=== PATIENT | female | born 1990 | race Two or more races ===

== ENCOUNTER 2016-12-16 11:52 | Emergency (ER) | payer SELFPAY ==
[~2016-12-16] VITALS: Ht 154.9 cm; Wt 64.9 kg
--- NOTE | 2016-12-16 12:57 | PHYS DOC ---
Past Medical History Past Medical History: Asthma Past Surgical History: Alcohol Use: None Drug Use: None Adult General Chief Complaint Chief Complaint: SORE THROAT HPI HPI Patient is a 26 year old female presents emergency department stating that she is 16 weeks . She is complaining of a sore throat that started yesterday. She denies any fever, chills or any nausea vomiting. She states that when she woke up this morning that was worse when she was having increased difficulty with swallowing. Patient states she has many old to maintain her own saliva and is able to swallow fluids. Patient has not taken anything for the pain and discomfort. Patient denies any cough or congestion. Review of Systems Review of Systems Constitutional: Denies fever or chills [] Eyes: Denies change in visual acuity, redness, or eye pain [] HENT: Denies nasal congestion. C/o sore throat Respiratory: Denies cough or shortness of breath [] Cardiovascular: No additional information not addressed in HPI [] GI: Denies abdominal pain, nausea, vomiting, bloody stools or diarrhea [] : Denies dysuria or hematuria [] Musculoskeletal: Denies back pain or joint pain [] Integument: Denies rash or skin lesions [] Neurologic: Denies headache, focal weakness or sensory changes [] Allergies Allergies Allergies Coded Allergies Type Severity Reaction Last Updated Verified No Known Drug Allergies 09/14/14 No Physical Exam Physical Exam Constitutional: Well developed, well nourished, no acute distress, non-toxic appearance. [] HENT: Normocephalic, atraumatic, bilateral external ears normal, oropharynx moist, no oral exudates, nose normal. Bilateral tympanic membranes appear to be normal. Throat with erythematous noted with no exudate. No uvula deviation noted. Eyes: PERRLA, EOMI, conjunctiva normal, no discharge. [] Neck: Normal range of motion, no tenderness, supple, no stridor. [] Cardiovascular:Heart rate regular rhythm, no murmur [] Lungs & Thorax: Bilateral breath sounds clear to auscultation [] Skin: Warm, dry, no erythema, no rash. [] Back: No tenderness Extremities: No tenderness, no cyanosis, no clubbing, ROM intact, no edema. [] Neurologic: Alert and oriented X 3, normal motor function, normal sensory function, no focal deficits noted. [] Psychologic: Affect normal, judgement normal, mood normal. [] Current Patient Data Vital Signs Vital Signs Date Time Temp Pulse Resp B/P Pulse Ox O2 Delivery O2 Flow Rate FiO2 12/16/16 13:08 98.1 64 20 100 Room Air 98.1 EKG EKG [] Radiology/Procedures Radiology/Procedures [] Course & Med Decision Making Course & Med Decision Making Pertinent Labs and Imaging studies reviewed. (See chart for details) Rapid strep was negative. Patient will be encouraged to drink plenty of fluids. Throat culture is pending. Also recommended Benadryl to help with the nasal secretions in the back of the throat. Also recommended patient to follow up with primary care physician in the next week if she is not feeling better. Since symptoms to return back to emergency department as been provided. Patient agrees with discharge instructions treatment regimens and follow-up recommendations. [] Dragon Disclaimer Dragon Disclaimer This electronic medical record was generated, in whole or in part, using a voice recognition dictation system. Departure Departure Impression: Primary Impression: Pharyngitis Disposition: 01 HOME, SELF-CARE Condition: STABLE Referrals: NO PCP (PCP) Patient Instructions: Viral and Bacterial Pharyngitis, [id number] Additional Instructions: Activity as tolerated. And off for pain and discomfort. You may also try Benadryl to help with the secretions down the back of the throat. Drink plenty of fluids. Follow-up through primary care physician in next week. Return back to emergency prior signs symptoms become worse. CARMEN HARRIS NP Dec 16, 2016 12:57
[2016-12-16 13:08] VITALS: BP 106/58
[2016-12-16 14:57] LABS: NEGATIVE OBC STREP NEG; POSITIVE OBC STREP POS
== END 2016-12-16 13:36 | disposition home or self-care (01) ==
LOC: ER 11:52
DX: O99.512 Diseases of the respiratory system complicating pregnancy, second trimester (principal); J02.9 Acute pharyngitis, unspecified; J45.909 Unspecified asthma, uncomplicated; Z3A.16 16 weeks gestation of pregnancy
CPT/HCPCS: 87070; 87880; 99283

== ENCOUNTER 2017-09-03 00:49 | Emergency (ER) | payer SELFPAY ==
[~2017-09-03] VITALS: Ht 154.9 cm; Wt 72.6 kg
[2017-09-03 01:24] VITALS: BP 115/56
[2017-09-03 01:29] LABS: BILIRUBIN,URINE NEGATIVE (NEG); GLUCOSE,URINE NEGATIVE (NEG); NITRITE,URINE NEGATIVE (NEG); PH,URINE 6.5; PROTEIN,URINE NEGATIVE (NEG-TRACE); UROBILINOGEN,URINE 0.2 mg/dL (0.2 mg/dL)
[2017-09-03 01:36] LABS: BACTERIA,URINE MODERATE /HPF (0-FEW); SQUAMOUS EPITHELIAL CELL,UR MOD /LPF; WBC,URINE TNTC /HPF (0-4)
[2017-09-03 01:41] LABS: NEG OBC UR NEG; POS OBC UR POS
[2017-09-03] MEDS ORDERED: NITR100C62 PO (01:59)
--- NOTE | 2017-09-03 01:59 | PHYS DOC ---
Past Medical History Past Medical History: Asthma Past Surgical History: Alcohol Use: None Drug Use: None Adult General Chief Complaint Chief Complaint: PAIN ON URINATION HPI HPI Patient is a 26 year old or sensory complaints of discomfort with urination, this is similar to previous UTIs. She denies any fevers, chills, rashes, vomiting, diarrhea, abdominal pain or back pain. Patient also denies vaginal discharge or vaginal bleeding. Review of Systems Review of Systems Constitutional: Denies fever or chills [] HENT: Denies nasal congestion or sore throat [] Respiratory: Denies cough or shortness of breath [] Cardiovascular: No chest pain GI: Denies abdominal pain, nausea, vomiting, : Denies hematuria, vaginal discharge or vaginal bleeding . yes to dysuria. Musculoskeletal: Denies back pain or joint pain [] Integument: Denies rash or skin lesions [] Neurologic: Denies headache, focal weakness or sensory changes [] Endocrine: Denies polyuria or polydipsia [] Allergies Allergies Allergies Coded Allergies Type Severity Reaction Last Updated Verified No Known Drug Allergies 09/14/14 No Physical Exam Physical Exam Constitutional: Well developed, well nourished, no acute distress, non-toxic appearance. [] HENT: Normocephalic, atraumatic, Eyes: EOMI, conjunctiva normal, no discharge. [] Neck: Normal range of motion, no tenderness, supple, no stridor. [] Cardiovascular:Heart rate regular rhythm, no murmur [] Lungs & Thorax: Bilateral breath sounds clear to auscultation [] Abdomen: Bowel sounds normal, soft, no tenderness, no masses, no pulsatile masses. [] Skin: Warm, dry, no erythema, no rash. [] Back: No tenderness, no CVA tenderness. [] Extremities: No tenderness, ROM intact, no edema. [] Neurologic: Alert and oriented X 3, normal motor function, no focal deficits noted. [] Psychologic: Affect normal, judgement normal, mood normal. [] Current Patient Data Vital Signs Vital Signs Date Time Temp Pulse Resp B/P (MAP) Pulse Ox O2 Delivery O2 Flow Rate FiO2 09/03/17 01:24 98.2 78 18 99 Room Air 98.2 Lab Values Laboratory Tests Test 09/03/17 01:20 09/03/17 01:25 Urine Test Negative (NEG) Urine Collection Type Unknown Urine Color Yellow Urine Clarity Cloudy Urine pH 6.5 Urine Specific [place] >=1.030 Urine Protein Negative mg/dL (NEG-TRACE) Urine Glucose (UA) Negative mg/dL (NEG) Urine Ketones (Stick) Negative mg/dL (NEG) Urine Blood Negative (NEG) Urine Nitrite Negative (NEG) Urine Bilirubin Negative (NEG) Urine Urobilinogen Dipstick 0.2 mg/dL (0.2 mg/dL) Urine Leukocyte Esterase Large (NEG) Urine RBC 1-2 /HPF (0-2) Urine WBC Tntc /HPF (0-4) Urine Squamous Epithelial Cells Mod /LPF Urine Bacteria Moderate /HPF (0-FEW) Urine Mucus Mod /LPF EKG EKG [] Radiology/Procedures Radiology/Procedures [] Course & Med Decision Making Course & Med Decision Making Pertinent Labs and Imaging studies reviewed. (See chart for details) [] Dragon Disclaimer Dragon Disclaimer This electronic medical record was generated, in whole or in part, using a voice recognition dictation system. Departure Departure Impression: Primary Impression: UTI (urinary tract infection) Disposition: HOME, SELF-CARE Condition: STABLE Referrals: UNKNOWN PCP NAME (PCP) Patient Instructions: Urinary Tract Infection, [id number] Additional Instructions: Please follow-up with your doctor for recheck and reevaluation within 1 week. Scripts Nitrofurantoin Monohyd/M-Cryst (MACROBID 100 MG CAPSULE) 100 Mg Capsule 1 CAP PO BID, #10 CAP Prov: Inocencio ENRIQUEZ MD 09/03/17 Inocencio ENRIQUEZ MD Sep 03, 2017 01:59
== END 2017-09-03 02:13 | disposition home or self-care (01) ==
LOC: ER 00:49
DX: N39.0 Urinary tract infection, site not specified (principal); J45.909 Unspecified asthma, uncomplicated
CPT/HCPCS: 81001; 81025; 87086; 99284

== ENCOUNTER 2017-11-16 17:19 | Emergency (ER) | payer SELFPAY ==
[~2017-11-16] VITALS: Ht 154.9 cm; Wt 72.6 kg
[~2017-11-16 17:19] MED LIST: NITR100C62 PO
[2017-11-16 17:53] VITALS: BP 122/69
--- NOTE | 2017-11-17 07:35 | RAD ---
Hand x-rays Indication: Injury to the forearm and fourth finger. Technique: 3 views of the left hand Comparison: None Findings: Subtle obliquely oriented lucency is seen through the distal aspect of the proximal phalanx of the fifth finger. No soft tissue abnormality. No radiopaque foreign body. No evidence of arthritic process. Impression: Subtle linear lucency through the distal aspect of the proximal phalanx of the fifth finger may represent a hairline fracture or vascular/nutrient channel. Clinically correlate with focal tenderness.
--- NOTE | 2017-11-17 15:40 | PHYS DOC ---
Past Medical History Past Medical History: Asthma Past Surgical History: Alcohol Use: None Drug Use: None Adult General Chief Complaint Chief Complaint: THUMB HPI HPI Patient is a 27 year old female who presents with pain to the left thumb and ring finger following an injury that occurred this evening. The patient was carrying a top was approximately 50 pounds from chicken when the tub and twisted pulling at her thumb and making 2 small abrasions on her ring finger. She presented immediately to the ED following the injury. Review of Systems Review of Systems Constitutional: Denies fever or chills [] Respiratory: Denies cough or shortness of breath [] Cardiovascular: No additional information not addressed in HPI [] Musculoskeletal: See history of present illness Integument: The history of present illness Neurologic: Denies headache, focal weakness or sensory changes [] All other systems were reviewed and found to be within normal limits, except as documented in this note. Allergies Allergies Allergies Coded Allergies Type Severity Reaction Last Updated Verified No Known Drug Allergies 09/14/14 No Physical Exam Physical Exam Constitutional: Well developed, well nourished, no acute distress, non-toxic appearance. [] Cardiovascular:Heart rate regular rhythm, no murmur [] Lungs & Thorax: Bilateral breath sounds clear to auscultation [] Skin: Patient has two 0.5 cm abrasions to the dorsal aspect of her ring finger Extremities: Tenderness to thumb and first metacarpal with palpation, no gross deformity noted, no cyanosis, no clubbing, ROM decreased due to pain, mild edema Neurologic: Alert and oriented X 3, normal motor function, normal sensory function, no focal deficits noted. [] Psychologic: Affect normal, judgement normal, mood normal. [] Current Patient Data Vital Signs Vital Signs Date Time Temp Pulse Resp B/P (MAP) Pulse Ox O2 Delivery O2 Flow Rate FiO2 11/16/17 17:53 98.8 97 16 100 Room Air 98.8 EKG EKG [] Radiology/Procedures Radiology/Procedures []PATIENT: ANTWAN DIAZ I ACCOUNT: [id number] : 1990 LOCATION: ER AGE: 27 SEX: F EXAM STATUS: DEP ER ORD. PHYSICIAN: TOBY NICHOLSON LABEL MAKER REASON: 50 pound container twisted injuring thumb and 4th finger PROCEDURE: HAND LEFT 3V Hand x-rays Indication: Injury to the forearm and fourth finger. Technique: 3 views of the left hand Comparison: None Findings: Subtle obliquely oriented lucency is seen through the distal aspect of the proximal phalanx of the fifth finger. No soft tissue abnormality. No radiopaque foreign body. No evidence of arthritic process. Impression: Subtle linear lucency through the distal aspect of the proximal phalanx of the fifth finger may represent a hairline fracture or vascular/nutrient channel. Clinically correlate with focal tenderness. DICTATED and SIGNED BY: MADELAINE BROCK DO DATE: 11/17/17 0727 CC: TOBY NICHOLSON APRN; NO PCP; NON,STAFF ~ Course & Med Decision Making Course & Med Decision Making Pertinent Labs and Imaging studies reviewed. (See chart for details) 1. Hand contusion 2. Abrasion Patient was placed in a thumb spica. Extremities warm pink and dry following placement. Pulses and sensation are intact. Patient is to follow-up with orthopedics in one to 2 days for a recheck of this injury. The patient was given a note to excuse for work. She is to return to the ED if worsening. Dragon Disclaimer Dragon Disclaimer This electronic medical record was generated, in whole or in part, using a voice recognition dictation system. Departure Departure Impression: Primary Impression: Sprain Additional Impression: Contusion Disposition: 01 HOME, SELF-CARE Condition: STABLE Referrals: HOANG LINDO MD NO PCP (PCP) Patient Instructions: Contusion, [id number], Sprain, [id number] Additional Instructions: Please make an appointment tomorrow morning for a follow-up with orthopedics. Please return to the ED if worsening. You may use ibuprofen or Tylenol for pain relief. Problem Qualifiers TOBY NICHOLSON APRN Nov 17, 2017 15:40
== END 2017-11-16 19:40 | disposition home or self-care (01) ==
LOC: ER 17:19
DX: S63.602A Unspecified sprain of left thumb, initial encounter (principal); S60.042A Contusion of left ring finger without damage to nail, initial encounter; J45.909 Unspecified asthma, uncomplicated; X58.XXXA Exposure to other specified factors, initial encounter; Y93.89 Activity, other specified; Y92.89 Other specified places as the place of occurrence of the external cause; Y99.8 Other external cause status
CPT/HCPCS: 29125; 73130; 99284-25

== ENCOUNTER 2018-05-25 00:12 | Emergency (ER) | payer SELFPAY ==
[2018-05-25] MEDS: LIDOCAINE 1%/EPI 1:100,000 20 ML VIAL. INJ (00:57)
== END 2018-05-25 01:18 | disposition home or self-care (01) ==
LOC: ER 00:12
DX: S01.01XA Laceration without foreign body of scalp, initial encounter (principal); W01.0XXA Fall on same level from slipping, tripping and stumbling without subsequent striking against object, initial encounter; Y93.89 Activity, other specified; Y92.89 Other specified places as the place of occurrence of the external cause; Y99.8 Other external cause status
CPT/HCPCS: 12001; 99283; J3490

== ENCOUNTER 2018-11-27 16:18 | Emergency (ER) | payer SELFPAY ==
[~2018-11-27] VITALS: Ht 154.9 cm; Wt 72.6 kg
[~2018-11-27 16:18] MED LIST changes: +IBUP-1060 PO
[2018-11-27 17:40] VITALS: BP 108/77
[2018-11-27] MEDS ORDERED: AMOX500C PO (18:06)
--- NOTE | 2018-11-27 18:07 | PHYS DOC ---
Past Medical History Past Medical History: Asthma Past Surgical History: (2) Alcohol Use: None Drug Use: None Adult General Chief Complaint Chief Complaint: SORE THROAT HPI HPI Patient is a 28 year old female who complains of a sore throat for the last 3 days. Patient states she had a recent sinus infection. She currently denies any fever, nausea, vomiting, diarrhea, or cough. States she has had intermittent shortness of breath and that her ears feel full. Patient states she has a history of asthma and takes her albuterol inhaler as needed. Review of Systems Review of Systems Constitutional: Denies fever or chills reports fatigue[] HENT: See HPI Respiratory: See hPI Cardiovascular: No additional information not addressed in HPI [] GI: Denies abdominal pain, nausea, vomiting, or diarrhea [] Integument: Denies rash or skin lesions [] Neurologic: Denies headache, focal weakness or sensory changes [] All other systems were reviewed and found to be within normal limits, except as documented in this note. Allergies Allergies Allergies Coded Allergies Type Severity Reaction Last Updated Verified No Known Drug Allergies 09/14/14 No Physical Exam Physical Exam Constitutional: Well developed, well nourished, no acute distress, non-toxic appearance. [] HENT: Normocephalic, atraumatic, bilateral external ears normal, bilateral TMs normal, erythema or posterior pharynx, oropharynx moist, no oral exudates, nose normal. [] Eyes: conjunctiva normal, no discharge. [] Neck: Normal range of motion, bilateral anterior cervical lymphnode enlargement and tenderness, no stridor. [] Cardiovascular:Heart rate regular rhythm, no murmur [] Lungs & Thorax: Bilateral breath sounds clear to auscultation [] Skin: Warm, dry, no erythema, no rash. [] Neurologic: Alert and oriented X 3, normal motor function, normal sensory function, no focal deficits noted. [] Psychologic: Affect normal, judgement normal, mood normal. [] Current Patient Data Vital Signs Vital Signs Date Time Temp Pulse Resp B/P (MAP) Pulse Ox O2 Delivery O2 Flow Rate FiO2 11/27/18 17:40 99.3 88 20 108/77 (87) 99 Room Air 99.3 Lab Values rapid strep positive EKG EKG [] Radiology/Procedures Radiology/Procedures [] Course & Med Decision Making Course & Med Decision Making Pertinent Labs and Imaging studies reviewed. (See chart for details) [] Dragon Disclaimer Dragon Disclaimer This electronic medical record was generated, in whole or in part, using a voice recognition dictation system. Departure Departure Impression: Primary Impression: Strep pharyngitis Disposition: 01 HOME, SELF-CARE Condition: STABLE Referrals: NO PCP (PCP) Patient Instructions: Strep Throat, [id number] Additional Instructions: Fill prescription and use as directed. Recommend warm salt water gargles as needed for relief of discomfort. Alternate Tylenol and ibuprofen as needed for fever/pain. Discard your toothbrush tomorrow and begin using a new toothbrush. Follow-up with primary care doctor if symptoms persist. Return to the ER if symptoms worsen. Scripts Amoxicillin (AMOXICILLIN) 500 Mg Capsule 1 CAP PO BID for 10 Days, #20 CAP 0 Refills Prov: MAXINE STYLES APRN 11/27/18 MAXINE STYLES APRN Nov 27, 2018 18:07
== END 2018-11-27 18:20 | disposition home or self-care (01) ==
LOC: ER 16:18
DX: J02.0 Streptococcal pharyngitis (principal); B95.0 Streptococcus, group A, as the cause of diseases classified elsewhere; J45.909 Unspecified asthma, uncomplicated; R59.9 Enlarged lymph nodes, unspecified
CPT/HCPCS: 87880; 99283

== ENCOUNTER 2019-02-23 09:00 | Emergency (ER) | payer SELFPAY ==
[~2019-02-23] VITALS: Ht 154.9 cm; Wt 68.0 kg
[~2019-02-23 09:00] MED LIST changes: +AMOX500C PO
[2019-02-23 10:07] VITALS: BP 113/67
[2019-02-23 10:32] LABS: BILIRUBIN,URINE NEGATIVE (NEG); CLARITY,URINE CLEAR; COLOR,URINE YELLOW; NITRITE,URINE NEGATIVE (NEG); PROTEIN,URINE NEGATIVE (NEG-TRACE); UROBILINOGEN,URINE 0.2 mg/dL (0.2 mg/dL)
[2019-02-23 10:48] LABS: SQUAMOUS EPITHELIAL CELL,UR MOD /LPF
[2019-02-23 10:49] LABS: BACTERIA,URINE MODERATE /HPF (0-FEW); RBC,URINE 0 /HPF (0-2)
[2019-02-23] MEDS ORDERED: PHEN-318 PO (11:06)
[2019-02-23] MEDS ORDERED: CIPR500T94 PO (11:06)
--- NOTE | 2019-02-23 11:06 | PHYS DOC ---
Past Medical History Past Medical History: Asthma Past Surgical History: Alcohol Use: Rarely Drug Use: None Adult General Chief Complaint Chief Complaint: PAIN ON URINATION HPI HPI 28-year-old otherwise healthy female presents with a 2 day history of burning with urination. She denies any gross hematuria. She denies any back or flank pain. She's had no nausea or vomiting. Any fever.[] Review of Systems Review of Systems Constitutional: Denies fever or chills [] Eyes: Denies change in visual acuity, redness, or eye pain [] HENT: Denies nasal congestion or sore throat [] Respiratory: Denies cough or shortness of breath [] Cardiovascular: No additional information not addressed in HPI [] GI: Denies abdominal pain, nausea, vomiting, bloody stools or diarrhea [] : Per history of present illness[] Musculoskeletal: Denies back pain or joint pain [] Integument: Denies rash or skin lesions [] Neurologic: Denies headache, focal weakness or sensory changes [] Endocrine: Denies polyuria or polydipsia [] All other systems were reviewed and found to be within normal limits, except as documented in this note. Allergies Allergies Allergies Coded Allergies Type Severity Reaction Last Updated Verified No Known Drug Allergies 09/14/14 No Physical Exam Physical Exam Constitutional: Well developed, well nourished, no acute distress, non-toxic appearance. [] HENT: Normocephalic, atraumatic, bilateral external ears normal, oropharynx moist, no oral exudates, nose normal. [] Eyes: PERRLA, EOMI, conjunctiva normal, no discharge. [] Neck: Normal range of motion, no tenderness, supple, no stridor. [] Cardiovascular:Heart rate regular rhythm, no murmur [] Lungs & Thorax: Bilateral breath sounds clear to auscultation [] Abdomen: Bowel sounds normal, soft, no tenderness, no masses, no pulsatile masses. [] Skin: Warm, dry, no erythema, no rash. [] Back: No tenderness, no CVA tenderness. [] Extremities: No tenderness, no cyanosis, no clubbing, ROM intact, no edema. [] Neurologic: Alert and oriented X 3, normal motor function, normal sensory function, no focal deficits noted. [] Psychologic: Affect normal, judgement normal, mood normal. [] Current Patient Data Vital Signs Vital Signs Date Time Temp Pulse Resp B/P (MAP) Pulse Ox O2 Delivery O2 Flow Rate FiO2 02/23/19 10:07 98.7 63 14 113/67 (82) 100 Room Air 98.7 Lab Values Laboratory Tests Test 02/23/19 10:00 02/23/19 10:06 Urine Collection Type Unknown Urine Color Yellow Urine Clarity Clear Urine pH 6.0 Urine Specific [place] >=1.030 Urine Protein Negative mg/dL (NEG-TRACE) Urine Glucose (UA) Negative mg/dL (NEG) Urine Ketones (Stick) Negative mg/dL (NEG) Urine Blood Trace (NEG) Urine Nitrite Negative (NEG) Urine Bilirubin Negative (NEG) Urine Urobilinogen Dipstick 0.2 mg/dL (0.2 mg/dL) Urine Leukocyte Esterase Small (NEG) Urine RBC 0 /HPF (0-2) Urine WBC 11-20 /HPF (0-4) Urine Squamous Epithelial Cells Mod /LPF Urine Bacteria Moderate /HPF (0-FEW) Urine Mucus Mod /LPF POC Urine HCG, Qualitative Hcg negative (Negative) EKG EKG [] Radiology/Procedures Radiology/Procedures [] Course & Med Decision Making Course & Med Decision Making Pertinent Labs and Imaging studies reviewed. (See chart for details) [] Dragon Disclaimer Dragon Disclaimer This electronic medical record was generated, in whole or in part, using a voice recognition dictation system. Departure Departure Impression: Primary Impression: Urinary tract infection Disposition: HOME, SELF-CARE Condition: STABLE Referrals: NO PCP (PCP) Patient Instructions: Urinary Tract Infection Additional Instructions: Drink plenty of fluids. Take antibiotics as directed. Return to the emergency department with any new or concerning symptoms Scripts Phenazopyridine Hcl (PYRIDIUM) 200 Mg Tablet 200 MG PO Q8HRS PRN for DYSURIA, #10 TAB Prov: NOREEN GARRIDO DO 02/23/19 Ciprofloxacin Hcl (CIPRO) 500 Mg Tablet 1 TAB PO BID, #10 TAB Prov: NOREEN GARRIDO DO 02/23/19 Problem Qualifiers Primary Impression: Urinary tract infection Urinary tract infection type: acute cystitis Hematuria presence: without hematuria Qualified Codes: N30.00 - Acute cystitis without hematuria NOREEN GARRIDO DO Feb 23, 2019 11:06
== END 2019-02-23 11:29 | disposition home or self-care (01) ==
LOC: ER 09:00
DX: N30.00 Acute cystitis without hematuria (principal); J45.909 Unspecified asthma, uncomplicated; Z98.890 Other specified postprocedural states
CPT/HCPCS: 81001; 81025; 87086; 99283